=== PATIENT | female | born 1950 | race Caucasian/White ===

== ENCOUNTER 2018-04-02 11:43 | Emergency (ER) | payer MEDICARE, OTHER ==
--- NOTE | 2018-04-02 12:48 | RADIOLOGY REPORT (SQ) ---
EXAM DESCRIPTION: SHOULDER LEFT 2 OR MORE VIEWS COMPLETED DATE/TIME: 04/02/2018 12:35 pm REASON FOR STUDY: left shoulder injury - fall COMPARISON: None. NUMBER OF VIEWS: Three views. TECHNIQUE: Internal rotation, external rotation, and Y view images acquired of the left shoulder. LIMITATIONS: None. FINDINGS: MINERALIZATION: Normal. BONES: Comminuted fracture surgical neck of the humerus up. Humeral head appears to be scratch humer al head does not appear to be displaced although suboptimally visualized on the Y-view. JOINTS: No dislocation. VISUALIZED LUNGS AND RIBS: No pneumothorax. No rib fracture. SOFT TISSUES: No radiopaque foreign body. OTHER: No other significant finding. IMPRESSION: Transverse 2 part fracture through the surgical neck of the humerus. TECHNICAL DOCUMENTATION: JOB ID: [id number] [employer]- All Rights Reserved Reading location - IP/workstation name: [email or web address]
[2018-04-02] MEDS ORDERED: HYDROMORPHONE HCL INJ/PF 2 MG/ML AMPULE IV ONE (12:53)
--- NOTE | 2018-04-02 13:40 | ER Document Report ---
ED Fall - General Chief Complaint: Fall Stated Complaint: FALL Time Seen by Provider: 04/02/18 12:53 Notes: Patient lost her balance and fell and hit her left shoulder and then her head as she went all the way down. Complaining of severe pain in the upper left arm and shoulder region. Denies any neck pain. Does not think she was knocked out. Does not complain of any neurologic deficits. Has not been sick recently. Thinks she just lost her balance. No shortness of breath. No rib pain or chest pains. No fever or chills. PMH: IDDM, GERD, hypertension, hypothyroid. - Related data Allergies/Adverse Reactions: acetazolamide Allergy (Verified 04/02/18 12:30) adhesive Allergy (Verified 04/02/18 12:29) meperidine [From Demerol] Allergy (Verified 04/02/18 12:29) pioglitazone [From Actos] Allergy (Verified 04/02/18 12:30) povidone-iodine [From Betadine] Allergy (Verified 04/02/18 12:29) soap [From Betadine] Allergy (Verified 04/02/18 12:29) Sulfa (Sulfonamide Antibiotics) Allergy (Verified 04/02/18 12:30) lorcet plus Allergy (Uncoded 04/02/18 12:30) Past Medical History - Social History Smoking Status: Never Smoker Frequency of alcohol use: None Drug Abuse: None Family History: Reviewed & Not Pertinent Patient has suicidal ideation: No Patient has homicidal ideation: No - Past Medical History Cardiac Medical History: Reports: Hx Hypertension Endocrine Medical History: Reports: Hx Diabetes Mellitus Type 2, Hx Hypothyroidism GI Medical History: Reports: Hx Gastroesophageal Reflux Disease Past Surgical History: Reports: Hx Breast Surgery - lumpectomy, Hx Section - x2, Hx Cholecystectomy, Hx Tonsillectomy Review of Systems - Review of Systems Notes: REVIEW OF SYSTEMS: CONSTITUTIONAL : Denies fever. EENT: Denies eye, ear, nose or mouth or throat pain or other symptoms. CARDIOVASCULAR: Denies chest or rib pain. RESPIRATORY: Denies cough, chest congestion, or shortness of breath. GASTROINTESTINAL: Denies abdominal pain or nausea, vomiting, or diarrhea. GENITOURINARY: Denies difficulty or painful urinating, urinary frequency, blood in urine. MUSCULOSKELETAL: Denies back or neck pain. See HPI. Very painful around the left humeral head. Patient says she has a bad right hip that needs replacement. SKIN: Denies rash or skin lesions. Couple of small scrapes on the dorsal aspect of the left forearm which are old lesions, not related to her current fall. NEUROLOGICAL: Denies LOC or altered mental status. Denies headache. Denies sensory loss or motor deficits. ALL OTHER SYSTEMS REVIEWED AND NEGATIVE. Physical Exam - Vital signs Vitals: Temp Pulse Resp BP Pulse Ox 97.3 F 73 18 126/61 H 95 04/02/18 12:00 04/02/18 12:00 04/02/18 12:00 04/02/18 12:00 04/02/18 12:00 Interpretation: Normal - Notes Notes: PHYSICAL EXAMINATION: GENERAL: Well-appearing, appears to be in significant pain in her left shoulder. HEAD: Atraumatic, normocephalic. No cranial hematomas. No real significant tenderness of the scalp to my palpation. EYES: Pupils equal round and reactive to light, extraocular movements intact. ENT: oropharynx clear without exudates. Moist mucous membranes. NECK: Initially in cervical collar. Normal range of motion, supple. LUNGS: Breath sounds clear and equal bilaterally. No rib tenderness. HEART: Regular rate and rhythm without murmurs. ABDOMEN: Soft, nontender. No guarding or rebound. No masses. BACK: No tenderness throughout entire back. EXTREMITIES: Patient has extreme pain with any touch or movement of the proximal left upper arm, in the region of the humeral head. Otherwise, normal range of motion without pain. Excellent capillary refill in the left fingers and excellent radial artery pulsation on the left. NEUROLOGICAL: Normal speech, normal gait. Normal sensory, motor, and reflex exams. Awake, alert, and oriented x3. Cranial nerves normal. PSYCH: Normal mood, normal affect. SKIN: Warm, dry, no rashes. A couple of scrapes on the dorsal aspect of the left forearm which patient says occurred in a previous injury having nothing to do with today's visit. Course - Vital Signs Vital signs: Temp Pulse Resp BP Pulse Ox 97.7 F 81 16 136/63 H 92 04/02/18 14:05 04/02/18 14:05 04/02/18 14:05 04/02/18 14:05 04/02/18 14:05 - Diagnostic Test Radiology results interpreted by me: 04/03/18 19:23 X-ray reveals a fracture of the surgical neck of the proximal left humerus. Procedures - Immobilization Left Proximal Shoulder Pre-Proc Neuro Vasc Exam: Normal Immobilizer type: Shoulder immobilizer Performed by: PCT Post-Proc Neuro Vasc Exam: Normal Alignment checked and good: Yes Discharge - Discharge Clinical Impression: Fall, Fracture, humerus, anatomical neck Condition: Stable Disposition: HOME, SELF-CARE Additional Instructions: Fracture Proximal Humerus There is a fracture at the upper end of the humerus, near the shoulder joint. Your physician has assessed the fracture's severity and has determined that it will heal well without surgery or "setting." The typical shoulder fracture doesn't need a cast. It's best treated by binding the arm down with a special sling. Ice packs are used to reduce pain and swelling. After early healing has occurred, [id number] exercises are prescribed for the shoulder. Complete healing may take three to six weeks, depending on the age of the patient and the severity of the fracture. Call the doctor or return at once if the arm becomes numb, or if pain or swelling become severe. SPLINT PRECAUTIONS: A splint has been placed. This will protect the area while healing begins. Your problem does NOT normally require a cast. It MUST, however, be held still! Keep the splint on ALL THE TIME until instructed to remove it by the doctor. As you begin to use the area, be careful. You shouldn't do anything which causes discomfort -- you may disturb the injury even with the splint in place. After the initial period of rest and elevation, if splint does not prevent pain when you move, come back. You may require placement of a different splint , or a cast. If there is unexpected severe pain, or numbness, discoloration, or swelling beyond the splint, you should return at once. If you feel that the splint has broken or become loose, come back. ICE & ELEVATION: Apply ice packs frequently against the painful area. Many different schedules are recommended, such as "20 minutes on, 20 minutes off" or "one hour ice, two hours rest." If you need to work, you may need to go longer between ice treatments. You should plan to have the area ice packed AT LEAST one- fourth of the time. The ice should be applied over the wrap, tape, or splint, or over a layer of cloth -- not directly against the skin. Some ice bags have a built-in cloth and can be put directly on the skin. Your injured part should be elevated as much as possible over the next 48 hours. Try to keep the injury above the level of the heart. Avoid use of the injured area. Elevation and rest will decrease the swelling. ORAL NARCOTIC MEDICATION: You have been given a prescription for pain control. This medication is a narcotic. It's best taken with food, as nausea can result if taken on an empty stomach. Don't operate machinery or drive within six hours of taking this medication. Do not combine this medicine with alcohol, or with any medication which can cause sedation (such as cold tablets or sleeping pills) unless you get permission from the physician. Narcotics tend to cause constipation. If possible, drink plenty of fluids and eat a diet high in fiber and fruits. FOLLOW-UP CARE: If you have been referred to a physician for follow-up care, call the physician s office for an appointment as you were instructed or within the next two days. If you experience worsening or a significant change in your symptoms, notify the physician immediately or return to the Emergency Department at any time for re-evaluation. You will need follow-up by an orthopedic surgeon in about a week. I have provided you with contact information for Dr. Garsia, who is the orthopedist transportation project manager for us today. Call their office when you get home today and tell them you need an appointment to be seen by 1 of their doctors by the first of next week. Prescriptions: Oxycodone HCl/Acetaminophen [Percocet 5-325 mg Tablet] 1 - 2 tab PO Q4H PRN #25 tablet PRN Reason: Promethazine HCl [Phenergan 25 mg Tablet] 1 - 2 tab PO Q6H PRN #20 tablet PRN Reason: Forms: Return to Work Referrals: TUAN LACKEY MD [Primary Care Provider] - Follow up as needed MAURICIO CORDOVA MD [ACTIVE STAFF] - Follow up in 1 week
[2018-04-02] MEDS ORDERED: ONDANSETRON HCL INJ/PF 4 MG/2 ML SDV IV ONE (13:41)
[2018-04-02 14:06] VITALS: BP 136/63
== END 2018-04-02 14:28 | disposition home or self-care (01) ==
LOC: ER 11:43
DX: S42.292A Other displaced fracture of upper end of left humerus, initial encounter for closed fracture (principal); M79.602 Pain in left arm; M25.512 Pain in left shoulder; W19.XXXA Unspecified fall, initial encounter; E11.9 Type 2 diabetes mellitus without complications; Z79.4 Long term (current) use of insulin; K21.9 Gastro-esophageal reflux disease without esophagitis; I10 Essential (primary) hypertension; E03.9 Hypothyroidism, unspecified
CPT/HCPCS: 99283; 96374; 96375; 73030; L3650; J1170; J2405